=== PATIENT | male | born 1960 | race Caucasian/White ===

== ENCOUNTER 2017-09-20 08:44 | Day surgery (SDC) | payer OTHER ==
[2017-09-19 16:36] VITALS: BMI 27.6
--- NOTE | 2017-09-20 03:41 | HP ---
SHORT STAY HISTORY AND PHYSICAL DATE OF ADMISSION: 09/20/2017 HISTORY OF PRESENT ILLNESS: Mr. Hayden Edwards is a 57-year-old male, referred to me for a colonosco py for colon cancer screening. The patient has no specific GI symptoms. He has no family history of colon cancer. No relevant history. ALLERGIES: None. SOCIAL HISTORY: The patient smokes 1 pack of cigarettes per day. He drinks alcohol 6 packs of beer every other day. MEDICAL ILLNESSES: 1. Hypertension. 2. Acid reflux. 3. Depression. 4. Chronic obstructive pulmonary disease. PHYSICAL EXAMINATION: VITAL SIGNS: Pulse is 70, blood pressure 130/80. HEENT: Conjunctivae clear. CARDIOVASCULAR SYSTEM: First and second heart sounds normal. LUNGS: Clear to auscultation. ABDOMEN: Soft to palpate. No organomegaly. No tenderness. No masses. EXTREMITIES: No edema. ADMITTING DIAGNOSIS: A 57-year-old male who comes for colonoscopy for colon cancer screening.
[2017-09-20] MEDS ORDERED: PROPOFOL 200 MG/20 ML VIAL ONE (11:42)
[2017-09-20] MEDS ORDERED: Lidocaine 1% PF 5 ML VIAL ONE (11:42)
--- NOTE | 2017-09-21 00:41 | OP ---
DATE OF PROCEDURE: 09/20/2017 PROCEDURE PERFORMED: Colonoscopy with polypectomy. PREOPERATIVE DIAGNOSIS: A 57-year-old male undergoing colonoscopy for colon cancer screening. POSTOPERATIVE DIAGNOSES: 1. Sessile sigmoid polyp. 2. Mild sigmoid diverticular disease. 3. Hemorrhoids. DESCRIPTION OF PROCEDURE: The patient was placed on his left lateral position and was given sedation by Anesthesia Department. A rectal exam was done before scope was advanced into the rectum. No les ions felt on rectal exam. A [employer]ax video colonoscope was introduced into rectum and advanced all the way into cecum. The prep was good except for some fecal residue, which was washed out. The mucosa appears normal throughout the colon. The appendical orifice, ileocecal valve and cecum, no pathology seen. The ascending colon, hepatic flexure, transverse colon, no pathology seen. The splenic flexu re, descending colon, no pathology seen. The sigmoid colon showed mild diverticula. A sessile sigmo id polyp was removed with snare cautery with good hemostasis. Retroflexion of the scope in the rectu m showed hemorrhoids. DISCHARGE PLANNING: This is a 57-year-old male who came for a colonoscopy for colon cancer screening, underwent colonoscopy and polypectomy. DISCHARGE RECOMMENDATIONS: 1. High-fiber diet. 2. Metamucil once a day. 3. Repeat colonoscopy in 5 years. 4. The patient was advised to call me if he developed abdominal pain, hematochezia, or fever.
== END 2017-09-20 12:05 | disposition home or self-care (01) ==
LOC: SDC 08:44
PROVIDERS: ATTEND Internal Medicine Gastroenterology
PROC: 0DBN8ZX Excision of Sigmoid Colon, Via Natural or Artificial Opening Endoscopic, Diagnostic (ICD-10-PCS; principal; 2017-09-20)
DX: Z12.11 Encounter for screening for malignant neoplasm of colon (principal); K63.5 Polyp of colon; K57.30 Diverticulosis of large intestine without perforation or abscess without bleeding; K64.9 Unspecified hemorrhoids; I10 Essential (primary) hypertension; K21.9 Gastro-esophageal reflux disease without esophagitis; J44.9 Chronic obstructive pulmonary disease, unspecified; Z79.899 Other long term (current) drug therapy
CPT/HCPCS: 88305; J2001; J2704

== ENCOUNTER 2018-06-26 15:36 | Emergency (ER) | payer OTHER ==
[2018-06-26] MEDS ORDERED: Adacel (T-DAP) 0.5 ML SYRINGE ONE (16:12)
[2018-06-26] MEDS ORDERED: Lidocaine 1% w/Epinephrine 1:100K 20 ML VIAL ONE (16:14)
--- NOTE | 2018-06-26 16:32 | RAD ---
RIGHT HAND THREE VIEWS: HISTORY: Fish hook in right hand. COMPARISON: None. FINDINGS: A metallic fish hook projects over the level of the third digit. No fracture. No cortical irregular ity or periosteal reaction. IMPRESSION: Foreign body, compatible with fish hook. POS: [facility]
[2018-06-26] MEDS ORDERED: Water For Inject, Bacteriostat 30 ML ONE (17:05)
[2018-06-26] MEDS ORDERED: CEFAZOLIN 1 GM VIAL ONE (17:05)
[2018-06-26] MEDS ORDERED: cefTRIAXone\\ROCEPHIN 1 GM VIAL ONE (17:09)
== END 2018-06-26 17:46 | disposition home or self-care (01) ==
LOC: ERS 15:36
DX: S61.441A Puncture wound with foreign body of right hand, initial encounter (principal); I10 Essential (primary) hypertension; F17.210 Nicotine dependence, cigarettes, uncomplicated; W45.8XXA Other foreign body or object entering through skin, initial encounter
CPT/HCPCS: 10120; 90471; 90715; 96372; J0690; J0696; J2001

== ENCOUNTER 2020-07-10 07:44 | Emergency (ER) | payer OTHER ==
[2020-07-10] MEDS ORDERED: Morphine 4 MG/ML VIAL ONE (08:18)
[2020-07-10] MEDS ORDERED: Ketorolac Tromethamine 30 MG/ML VIAL ONE (08:18)
[2020-07-10] MEDS ORDERED: Ondansetron PF 4 MG/2 ML Vial ONE (08:24)
[2020-07-10 08:56] LABS: #Eosinphils 0.1 thou/uL (0.0-0.7); #Lymphocytes 1.2 thou/uL (1.20-3.40); #Monocytes 0.5 thou/uL (0.11-0.59); %Basophils 0.3 % (0.0-1.0); %Eosinophils 1.2 % (0.0-10.0); %Lymphocytes 20.7 % (21.0-51.0); %Monocytes 9.4 % (0.0-10.0); %Neutrophils 68.4 % (42.0-75.0); Hemoglobin 12.9 g/dL (14.0-18.0); Mean Corpuscular Hemoglobin 31.9 pg (27.0-31.0); Mean Corpuscular Volume 88.8 fL (78.0-98.0); Mean Platelet Volume 6.1 fL (7.4-10.4); Platelet Count 393 thou/uL (130-400); RBC Distribution Width 11.4 % (11.5-14.5); Red Blood Cell (RBC) Count 4.04 mill/uL (4.70-6.10); White Blood Cell (WBC) Count 5.8 thou/uL (4.8-10.8)
[2020-07-10 09:18] LABS: ALT (SGPT) 9 U/L (8-55); AST (SGOT) 19 U/L (5-34); Albumin 4.4 g/dL (3.5-5.0); Alkaline Phosphatase 75 U/L (40-110); Anion Gap 17 mmol/L (10-20); BUN (Urea Nitrogen) 17 mg/dL (8.4-25.7); Bilirubin, Total 0.2 mg/dL (0.2-1.2); Calc. Creatinine Clearance 0 mL/min (70-130); Calcium 8.7 mg/dL (7.8-10.44); Carbon Dioxide 24 mmol/L (22-29); Chloride 87 mmol/L (98-107); Glucose 114 mg/dL (70-105); Potassium 3.1 mmol/L (3.5-5.1); Protein, Total 7.4 g/dL (6.0-8.3); Sodium 125 mmol/L (136-145)
[2020-07-10 10:45] LABS: Bilirubin Negative (Negative); Blood, Urine Negative (Negative); Clarity Clear (Clear); Glucose, Urine (Dipstick) Normal (Negative); Ketone, Urine Negative (Negative); Leukocyte Negative Leu/uL (Negative); Nitrite Negative (Negative); Protein, Urine (Dipstick) Negative (Neg-Trace); Specific Gravity, Urine 1.014 (1.002-1.036); Urobilinogen Normal mg/dL (Less than 2)
[2020-07-10] MEDS ORDERED: Potassium Chloride 20 MEQ TAB ONE (10:54)
[2020-07-10] MEDS ORDERED: Iopamidol-370 76% 500 ML 1 ML ONE (13:45)
== END 2020-07-10 11:43 | disposition home or self-care (01) ==
LOC: ERS 07:44
DX: S30.0XXA Contusion of lower back and pelvis, initial encounter (principal); E87.1 Hypo-osmolality and hyponatremia; E87.6 Hypokalemia; I10 Essential (primary) hypertension; F17.210 Nicotine dependence, cigarettes, uncomplicated; W19.XXXA Unspecified fall, initial encounter
CPT/HCPCS: 36415; 74177; 80053; 81003; 85025; 96374; 96375; J1885; J2270; J2405; Q9967

== ENCOUNTER 2020-12-25 08:13 | Outpatient (CLI) | payer OTHER | END 2020-12-25 08:14 | disposition home or self-care (01) | LOC: ULT 08:13 | PROVIDERS: ATTEND Family Medicine | DX: R10.11 Right upper quadrant pain (principal) | CPT/HCPCS: 76705; 76999 ==

== ENCOUNTER 2023-05-18 14:08 | Outpatient (CLI) | payer OTHER | END 2023-05-18 14:09 | disposition home or self-care (01) | LOC: BICCT 14:08 | PROVIDERS: ATTEND Family Medicine | DX: Z12.2 Encounter for screening for malignant neoplasm of respiratory organs (principal); F17.218 Nicotine dependence, cigarettes, with other nicotine-induced disorders | CPT/HCPCS: 71271 ==